=== PATIENT | female | born 1995 | race Caucasian/White ===

== ENCOUNTER → 2017-09-16 11:03 | Outpatient (POV) | payer OTHER, SELFPAY | PROVIDERS: Family Provider Family Medicine; PCP Family Medicine; Visit Provider Nurse Practitioner Acute Care | DX: Z00.00 Encounter for general adult medical examination without abnormal findings (principal) ==

== ENCOUNTER → 2020-02-26 16:42 | Outpatient (CLI) | payer BC, SELFPAY ==
[2020-02-26 18:53] LABS: Anion Gap 14.2 mEq/L (5-15); Blood Urea Nitrogen 13 mg/dl (7-17); Calcium 9.6 mg/dl (8.4-10.2); Carbon Dioxide 26 mmol/L (22.0-30.0); Chloride 99 mmol/L (98-107); Estimated Glomerular Filt Rate 103 ml/min (>60); GFR (African American) 124 ML/MIN (>60); Glucose 88 mg/dl (74-100); Potassium 4.2 mmoL/L (3.5-5.1); Sodium 135 mmol/L (136-145)
== END ==
PROVIDERS: Visit Provider Physician Assistant
DX: L70.0 Acne vulgaris (principal); Z79.899 Other long term (current) drug therapy
CPT/HCPCS: 36415; 80048

== ENCOUNTER 2020-10-11 14:40 | Emergency (ER) | payer BC, SELFPAY ==
[2020-10-11 14:59] VITALS: BP 124/71; PULSE 74; RESP 22; TEMP 36.9; O2SAT 98; BMI 21.9
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
[2020-10-11 15:27] VITALS: BP 124/71; PULSE 74; RESP 22; TEMP 36.9; O2SAT 98
== END 2020-10-11 15:46 | disposition home or self-care (01) ==
PROVIDERS: Emergency Provider Nurse Practitioner; PCP Nurse Practitioner Family
DX: T63.451A Toxic effect of venom of hornets, accidental (unintentional), initial encounter (principal)
CPT/HCPCS: 96372; 99202; G0463

== ENCOUNTER 2020-11-20 19:18 | Emergency (ER) | payer BC, SELFPAY ==
[2020-11-20 20:31] VITALS: BP 128/76; PULSE 80; RESP 18; TEMP 37; O2SAT 96; BMI 20.3
--- NOTE | 2020-11-20 20:45 | HMH.EDUTC ---
[facility] [place]ression: Epigastric pain Disposition: Home, Self-Care Condition on Discharge: Good Instructions: DI for Epigastric Pain Additional Instructions: Follow up with Marlen if not improving Prescriptions: Sucralfate [Carafate 1gm Tab] 1 gm PO ACHS 30 Days #120 tab Transmission Status: Pending to [id number] Omeprazole [Omeprazole 40mg Capsule] 40 mg PO DAILY 30 Days #30 cap Transmission Status: Pending to [facility] Referrals: Marlen Ontiveros [Primary Care Provider] - Time of Disposition: 20:56 Medical Decision Making - Lane Inquiry Pt receiving controlled substance: No - Lab Data Lab results reviewed: Yes: I reviewed the patient's lab results. [facility] [place] - General Stated complaint: fever stomach pain Time Seen by Provider: 11/20/20 20:45 - History of Present Illness Provider Complaint: Patient has had intermittent epigastric pain for 3 days, worse today. Has history of IBS but this is getting worse. Hurts in middle of stomach, just under ribs. No relation to eating. No dysuria. Had mild muscle soreness earlier and a low grade fever. No nausea, vomiting, or diarrhea. Took Pepto-Bismol, Gas-X with no relief. Onset (ago): day(s) (3) Location: abdomen Relieving factors: none Exacerbating factors: none Treatments prior to arrival: other (Gas-X, Pepto Bismol) - Related Data Home Medications Medication Instructions Recorded Confirmed Buspirone HCl [Buspar 10mg 0 mg PO DAILY 10/17/17 10/21/17 tablet] Spironolactone [Spironolactone 25 mg PO DAILY 10/17/17 10/21/17 25mg Tablet] norethindrone-e.estradioL-iron [Lo 1 tab PO DAILY 10/17/17 10/21/17 Loestrin Fe 1-10 Tablet] l Gasseri/B Bifidum/B Longum 1 each PO DAILY 10/21/17 10/21/17 [[employer] Capsule] Previous Rx's Medication Instructions Recorded predniSONE [Deltasone 10mg tablet] 10 mg PO BID 3 Days #6 tab 10/11/20 Omeprazole [Omeprazole 40mg 40 mg PO DAILY 30 Days #30 cap 11/20/20 Capsule] Sucralfate [Carafate 1gm Tab] 1 gm PO ACHS 30 Days #120 tab 11/20/20 Allergies Allergy/AdvReac Type Severity Reaction Status Date / Time No Known Allergies Allergy Verified 10/21/17 13:01 [facility] History - Hepatitis A Screen Attestation statement:: This patient has been screened for Hepatitis A risk factors. I have reviewed the patient's past medical history: Yes Medical History: Reports:: Heart Murmur (states grew out of it ), Hyperlipidemia (states genetic,not on medication) Denies:: Diabetes Mellitus Type 1, Diabetes Mellitus Type 2, Internal Pacemaker, Lung Disease, Seizures Other Surgeries: No: Pacemaker - Social History Smoking Status: Never smoker Alcohol Intake: never Occupational Status: employed Household Members: family ROS Obtained: Yes All systems reviewed & no additional complaints - Constitutional Constitutional: Reports fever(s) - Gastrointestinal Gastrointestingal: Reports: abdominal pain Physical Exam - General General appearance: alert, in no apparent distress - Head Head exam: normocephalic - Eye Eye exam: Present: PERRL - ENT ENT exam: Present: normal oropharynx, TM's normal bilaterally - Neck Neck exam: Present: normal inspection - Chest Chest inspection: Present: normal inspection, symmetric chest wall rise - Respiratory Respiratory exam: Present: normal lung sounds bilaterally - Cardiovascular Cardiovascular exam: Present: regular rate, normal rhythm - Abdominal Exam Abdominal exam: Present: soft, tenderness. Absent: guarding, rigidity, Manzano's sign Abdominal tenderness: Present: epigastrium - Neurological Exam Neurological exam: Present: alert, oriented X3 - Psychiatric Psychiatric exam: Present: normal affect, normal mood - Skin Skin exam: Present: warm, dry, intact
[2020-11-20 21:09] VITALS: BP 138/88; PULSE 82; RESP 16; TEMP 37
[2020-11-21 21:08] LABS: UTC Strep Screen (Rapid) Negative (Negative)
[2020-11-21 21:08] LABS: Apearance,Urine Clear (Clear); Bilirubin,Urine Negative (Negative); Blood, Urine Negative (Negative); Color,Urine Yellow (Yellow); Glucose,Urine (UA) Negative (Negative); Ketones,Urine Negative (Negative); Protein,Urine Negative (Negative); Specific Gravity, Urine 1.025 (1.005-1.030); UTC Leukocyte Esterase,Urine Negative (Negative); UTC Nitrate,Urine Negative (Negative); UTC Pregnancy Test, Urine Negative (Negative); Urobilinogen,Urine 0.2 EU/dl (0.2)
--- NOTE | 2020-11-22 13:11 | PC.NURSE ---
Pt aware of positive results
== END 2020-11-20 21:10 | disposition home or self-care (01) ==
PROVIDERS: Emergency Provider Physician Assistant; PCP Nurse Practitioner Family
DX: U07.1 COVID-19 (principal); E78.5 Hyperlipidemia, unspecified
CPT/HCPCS: 81003; 81025; 87880; 99203; G0463; U0003

== ENCOUNTER 2022-11-25 09:34 | Emergency (ER) | payer BC, SELFPAY ==
[2022-11-25 09:40] VITALS: BP 122/85; PULSE 78; RESP 20; TEMP 36.8; O2SAT 98; BMI 23.1
[2022-11-25 09:57] LABS: UTC Strep Screen (Rapid) Negative (Negative)
--- NOTE | 2022-11-25 10:00 | EXP.UTC ---
Discharge Plan Disposition Patient Disposition: Home, Self-Care Condition: Good Prescriptions Prescriptions: New prednisone 20 mg tablet 20 mg PO BID Qty: 10 0RF pseudoephedrine HCl [Sudafed 12 Hour] 120 mg tablet extended release 120 mg PO BID PRN (Reason: nasal congestion) Qty: 20 0RF No Action spironolactone 50 mg tablet 100 mg PO DAILY cranberry 400 mg capsule 400 mg PO DAILY Rx Instructions: administer with a meal amoxicillin 500 mg capsule 500 mg PO BID 7 Days Qty: 14 0RF methylprednisolone 4 mg tablets,dose pack See Rx Instructions PO PER PKG DIR Qty: 21 0RF Rx Instructions: PO PER PKG DIR fluconazole 150 mg tablet 150 mg PO Q3D Qty: 2 0RF norethindrone-e.estradiol-iron [Lo Loestrin Fe] 0 tablet 1 tab PO DAILY buspirone 10 mg tablet 20 mg PO DAILY Referrals Follow up/Referrals: Marlen Ontiveros [Primary Care Provider] - See instructions Activity Restrictions/Add. Instructions Additional Instructions/Restrictions: Follow up with Mrs Gee if not improving Clinical Impressions Clinical Impression: Upper respiratory infection Instructions Patient Instructions: DI for Viral Upper Respiratory Infection -- Adult Discharge ED Provider: Glenis Donahue [facility] [place] General Stated complaint: congestion, sore throat, h/a, runny nose, fever Time Seen by Provider: 11/25/22 10:02 History of Present Illness Provider Complaint: Congestion, sore throat, runny nose X 3 days. Fever last night. No vomiting or diarrhea. Has taken Benadryl, Dayquil, Nyquil. Home COVID test negative Onset (ago): day(s) (3) Relieving factors: none Exacerbating factors: none Associated symptoms: denies other symptoms Treatments prior to arrival: other (Dayquil, Nyquil, Benadryl) Related Data Home Medications Medication Instructions Recorded Confirmed norethindrone 1 mg-ethinyl 1 tab PO DAILY control 10/17/17 12/22/21 estradiol 10 mcg (24)-iron 10 mcg(2) tablet (Lo Loestrin Fe) buspirone 10 mg tablet 20 mg PO DAILY stomach 12/22/21 12/22/21 cranberry 400 mg capsule 400 mg PO DAILY 12/22/21 12/22/21 spironolactone 50 mg tablet 100 mg PO DAILY acne 12/22/21 12/22/21 Previous Rx's Medication Instructions Recorded amoxicillin 500 mg capsule 500 mg PO BID 7 days #14 caps 12/22/21 fluconazole 150 mg tablet 150 mg PO Q3D 2 doses #2 tabs 12/22/21 methylprednisolone 4 mg tablets in See Rx Instructions PO PER PKG DIR 12/22/21 a dose pack #21 tabs prednisone 20 mg tablet 20 mg PO BID #10 tabs 11/25/22 pseudoephedrine HCl 120 mg 120 mg PO BID PRN nasal congestion 11/25/22 tablet,extended release (Sudafed #20 tabs 12 Hour) Allergies Allergy/AdvReac Type Severity Reaction Status Date / Time No Known Allergies Allergy Verified 12/22/21 08:47 [facility] Disclaimer: The information contained in this section may have been updated after the patient was seen, as this information can be updated by other users. Family History (Updated 12/22/21 @ 08:50 by Chyna Issa LPN) Hypertension Father Social History (Updated 12/22/21 @ 08:51 by Chyna Issa LPN) Smoking Status: Never smoker alcohol intake: never substance use type: denies use current occupational status: employed Travel in the last 8 weeks: None household members: significant other housing: house ROS Obtained: Yes All systems reviewed & no additional complaints except as documented Constitutional Constitutional: Reports fever(s) ENT Ears, Nose, Mouth, and Throat: Reports nasal congestion, Reports nasal discharge, Reports sinus pain, Reports sinus pressure and Reports sore throat Physical Exam General General appearance: alert and in no apparent distress Head Head exam: atraumatic, normocephalic and normal inspection Eye Eye exam: Present normal appearance, PERRL and EOMI ENT ENT exam: Present normal exam, normal oropharynx, mucous membranes moist, T
[2022-11-25 10:09] VITALS: BP 122/85; PULSE 78; RESP 20; TEMP 36.8; O2SAT 98
== END 2022-11-25 10:10 | disposition home or self-care (01) ==
PROVIDERS: Emergency Provider Physician Assistant; PCP Nurse Practitioner Family
DX: J06.9 Acute upper respiratory infection, unspecified (principal); R50.9 Fever, unspecified; B34.9 Viral infection, unspecified
CPT/HCPCS: 87880; 99212; 99214; G0463